=== PATIENT | male | born 1960 | race Caucasian/White ===

== ENCOUNTER 2025-06-13 13:43 | Inpatient (IN) ==
[2025-06-13] MEDS: OPTIRAY 320 125ml IV ONE (14:35)
[2025-06-13 14:43] LABS: Hematocrit (blood only) 41.5 % (42.0-52.0); Hemoglobin 14.6 g/dl (14.0-18.0); Immature Granulocytes # (auto) 0.02 K/uL (0.01-0.20); Immature Granulocytes % (auto) 0.3 %; Mean Corpuscular Hemoglobin 30.7 pg (25.0-34.0); Mean Corpuscular Volume 87.2 fL (80.0-100.0); Platelet Count 188 K/uL (130-400); RDW Standard Deviation 37.8 fL (36.4-46.3); Red Blood Count 4.76 M/uL (4.70-6.10); White Blood Count 6.23 K/ul (4.8-10.8)
--- NOTE | 2025-06-13 14:54 | XRay Report ---
Exam: Chest one view portable. Reason for exam: Chest pain with dizziness. Previous studies: None FINDINGS: Left-sided twin lead pacemaker seen. Wire sternal sutures and clips noted. Heart is top normal in size. Some mild opacification is seen in the retrocardiac silhouette in the left lower lobe suggesting early infiltrate and/or atelectasis. The right lung is clear. No pneumothorax or pleural effusion is seen. IMPRESSION: 1. Status post cardiac surgery and pacemaker placement. 2. Left lower lobe atelectasis/infiltrate. Radiographic follow-up recommended. . Electronically signed by Lester Ma 06-13-2025 2:53 PM
[2025-06-13 15:02] LABS: Alanine Aminotransferase 19.0 U/L (7-52); Albumin Globulin Ratio 1.5 (0.9-2); Alkaline Phosphatase 64.0 U/L (34-104); Anion Gap 7.0 (3-11); Bilirubin,Total 1.7 mg/dl (0.2-1.0); Blood Urea Nitrogen 20.0 mg/dl (6-23); Calcium 9.3 mg/dl (8.6-10.3); Carbon Dioxide 26.0 mmol/L (21-32); Chloride 105.0 mmol/L (98-107); Creatinine Clr Calc Pharmacy 94.6 ml/min; Globulin 2.7 gm/dl (2.5-4.0); Glucose 158.0 mg/dl (70-99(Fasting)); Lipase 39.0 U/L (11-82); Potassium 4.0 mmol/L (3.5-5.1); Sodium 138.0 mmol/L (136-145); Total Protein 6.8 gm/dl (6.0-8.3)
--- NOTE | 2025-06-13 15:18 | CT Scan Report ---
Exam: CT angiogram of the chest pulmonary embolus protocol. Reason for exam: Dizziness with elevated heart rate. Previous studies: Chest radiograph 06/13/2025. FINDINGS: there is good opacification of the pulmonary arteries. At this time no persistent filling defect noted to indicate embolus is seen on either side. The patient is a known aneurysm or dissection. Leads from ventricular pacing device are present. Coronary grafts are noted. Clips present. Overall cardiac size top normal. No mediastinal mass or adenopathy noted. The lungs and show some calcified granulomata, but no active infiltrate or edema. Some osseous changes seen in the right lower lobe. Calcified gallstones present. IMPRESSION: 1. Negative for pulmonary embolus. 2. Negative for aortic dissection. 3. Clear lung zones. Electronically signed by Lester Ma 06-13-2025 3:18 PM
--- NOTE | 2025-06-13 16:30 | History & Physical Report ---
Date of Service June 13, 2025 Assessment & Plan (1) Atrial fibrillation with RVR: Plan: History of paroxysmal atrial fibrillation status post pacemaker placement. History of recurrent ablation and also maze procedure for atrial fibrillation Noted to have A-fib with RVR for monitor as an outpatient and was sent into the emergency room Heart rate is controlled but in A-fib with negative cardiac troponins without any chest pain He was started with intravenous heparin and small dose of beta-felice Cardiology consultation will be taken for further management of his PAF (2) BPH (benign prostatic hyperplasia): Plan: Continue current medications (3) Prediabetes: Plan: Does not take any medications (4) History of testicular cancer: Plan: Remote history of testicular cancer status post right testicular removal (5) H/O aortic valve replacement: Plan: History of Aortic valve replacement Denies any chest pain but has palpitation Will get echo of the heart to evaluate it further (6) H/O thoracic aortic aneurysm repair: Plan DVT prophylaxis IV heparin CODE STATUS Full ER note there is no-year-old History of Present Illness Chief Complaint: Palpitation this morning and informed by doctor's office that she is in atrial fibrillation Primary Care Provider: Jarrod Fallon DO He is a 64-year-old male with significant past medical history of cardiac procedures for A-fib including maze procedure and ablation x 2 1 in 2008 and another on his 2013, open heart surgery with Aortic valve replacement and also status post pacemaker with history of paroxysmal atrial fibrillation. He also has prediabetes and benign prostatic hypertrophy and with remote history of testicular cancer status post right testicle removed in 2000. He has also history of thoracic aortic surgery. He has had anticoagulation with Coumadin in the past but presently has not been taking any anticoagulation. He was told by his doctor's office that he has developed atrial fibrillation with rapid ventricular response. He felt palpitation yesterday and he still went to continue with his gym. He has been weak and did have some chest pressure but no pain or any shortness of breath while at gym and wanted to check out his heart further. Allergies Allergy/AdvReac Type Severity Reaction Status Date / Time No Known Allergies Allergy Unverified 06/13/25 15:49 Home Medications Medication Instructions Recorded Confirmed Type Otc Medications 0 mg PO UD 06/13/25 06/13/25 History finasteride 5 mg tablet 5 mg PO QAM 06/13/25 06/13/25 History hydroxychloroquine 200 mg tablet 200 mg PO QAM 06/13/25 06/13/25 History Past Med/Surg History Problem List (Updated 06/13/25 @ 17:14 by Scott Morton MD) H/O aortic valve replacement Palpitations (Acute) Chest pain (Acute) Medical History Atrial fibrillation with RVR BPH (benign prostatic hyperplasia) Prediabetes History of testicular cancer Surgical History H/O thoracic aortic aneurysm repair Status post mitral valve replacement Social History Smoking Status: Never smoker Hx Alcohol Use: Yes Hx Substance Use: No Preferred Language: Nepalese Communication Ability: Effective Commercial Lines Assistant Required: No Beliefs That Will Affect Care: None Current Living Situation: Spouse Current Living Situation Comment: from home with spouce, pt is able to care for himself Feels Safe at Home: Yes Safety Concerns: Feels Safe At This Time Assistive Devices: None Review of Systems Review of Systems: All systems reviewed and are unremarkable except as noted below Physical Exam Physical Exam: Lying in bed without any acute distress Constitutional: well developed and well nourished; not ill appearing Eyes: PERRL, conjunctivae normal, anicteric sclerae ENMT: external ear and nose normal, oropharynx normal Neck: trachea midline, no thyromegaly Respiratory: no respiratory distress Auscultation: lungs clear to auscultation bilaterally Cardiovascular: Rate/Rhythm: + irregularly irregular; not tachycardic Heart Sounds: normal S1, normal S2 and + murmur Extremities: no edema Gastrointestinal (Abdomen): Inspection/Auscultation: normal bowel sounds; abdomen not distended Percussion/Palpation: abdomen soft; abdomen nontender Musculoskeletal: No acute arthritis involving any of the joint Neurologic: normal touch/pain/proprioception and moves all extremities; no focal motor deficits Lymphatic: no cervical or axillary lymphadenopathy Results & Data Results & Data Vital Signs (Past 12 Hours) Vital Signs Temp Pulse Pulse Resp BP BP Pulse Ox 06/13/25 14:22 73 06/13/25 14:18 75 16 138/94 97 06/13/25 14:18 97 06/13/25 13:52 36.6 C 80 18 129/83 94 O2 Del Method 06/13/25 14:22 06/13/25 14:18 06/13/25 14:18 Room Air 06/13/25 13:52 Room Air Laboratory Results Short CBC 06/13/25 Range/Units 14:13 WBC 6.23 (4.8-10.8) K/ul Hgb 14.6 (14.0-18.0) g/dl Hct 41.5 L (42.0-52.0) % Plt Count 188 (130-400) K/uL BMP 06/13/25 14:13 Sodium 138 Potassium 4.0 Chloride 105 Carbon Dioxide 26 BUN 20 Creatinine 0.95 Glucose 158 H Calcium 9.3 Liver Function 06/13/25 Range/Units 14:13 Total Bilirubin 1.7 H (0.2-1.0) mg/dl AST 27 (13-39) U/L ALT 19 (7-52) U/L Alkaline Phosphatase 64 (34-104) U/L Albumin 4.1 (3.4-5.0) gm/dl Medications Administered Current Inpatient Medications Heparin Sodium/Dextrose (Heparin 28220 Unit/500 Ml D5w) 25,000 units in 500 mls @ 20 mls/hr IV .Q24H MARCIN; Protocol Stop: 07/13/25 16:44 Metoprolol Tartrate (Metoprolol Tartrate 25 Mg Tab) 12.5 mg PO BID MARCIN Stop: 07/13/25 20:59 Glucose mg
[2025-06-13] MEDS: HEPARIN SOD (PORCINE) 1000 UNIT/ML IV ONE (16:48)
[2025-06-13] MEDS: HEPARIN 25000 UNIT/500 ML D5W 25,000 UNITS/500 ML BAG IV SCH (16:48)
--- NOTE | 2025-06-13 17:14 | Emergency Department Note ---
History of Present Illness General Chief Complaint: Cardiac Assessment Stated Complaint: HEART PROBLEMS ELEVATED HR Time Seen by Provider: 06/13/25 14:04 History of Present Illness Provider Complaint: chest pain Onset (ago): hour(s) 3 Duration: improved and now resolved Onset: during exertion (Walking on treadmill) Pain Location: substernal and left chest Pain Radiation: none Current Pain Intensity: 0 Quality: + aching Relieved By: + rest Exacerbated By: + exertion Context: no recent illness, no recent surgery, no recent immobilization, no recent travel, no trauma/injury, no new medications or no history of DVT/PE Associated symptoms: + palpitations; no nausea, no vomiting, no dyspnea, no syncope, no fever, no cough or no leg swelling History of atrial fibrillation not on any anticoagulation. Home Medications Medication Instructions Recorded Confirmed Type Otc Medications 0 mg PO UD 06/13/25 06/13/25 History finasteride 5 mg tablet 5 mg PO QAM 06/13/25 06/13/25 History hydroxychloroquine 200 mg tablet 200 mg PO QAM 06/13/25 06/13/25 History Allergies Allergy/AdvReac Type Severity Reaction Status Date / Time No Known Allergies Allergy Unverified 06/13/25 15:49 Past Med/Surg History Problem List (Updated 06/13/25 @ 17:14 by Scott Morton MD) Palpitations (Acute) Chest pain (Acute) Medical History Atrial fibrillation with RVR BPH (benign prostatic hyperplasia) Prediabetes History of testicular cancer Surgical History H/O thoracic aortic aneurysm repair Status post mitral valve replacement Social History Smoking Status: Never smoker Preferred Language: Sami Feels Safe at Home: Yes Physical Exam Vital Signs Vital Signs - 24 hr 06/13/25 13:52 06/13/25 14:18 06/13/25 14:18 Temperature 36.6 C Temperature Source Temporal Artery Scan Pulse Rate 80 Pulse Rate [Apical] 75 Respiratory Rate 18 16 Respiratory Effort / Characteristics Non-Labored Spontaneous Respiratory Depth Blood Pressure 129/83 Blood Pressure [Left Arm] 138/94 Blood Pressure Mean 98 Blood Pressure Mean [Left Arm] 108 Pulse Oximetry 94 97 97 Oxygen Delivery Method Room Air Room Air Sepsis Recent Fever Within 48 Hours No Sepsis New/Unexplained Change in Mental Status No Sepsis Action Taken by Nursing No Action Required 06/13/25 14:22 06/13/25 16:00 Temperature Temperature Source Pulse Rate 73 Pulse Rate [Apical] 85 Respiratory Rate 15 Respiratory Effort / Characteristics Non-Labored Spontaneous Respiratory Depth Normal Blood Pressure Blood Pressure [Left Arm] 125/91 Blood Pressure Mean Blood Pressure Mean [Left Arm] 102 Pulse Oximetry 99 Oxygen Delivery Method Room Air Sepsis Recent Fever Within 48 Hours Sepsis New/Unexplained Change in Mental Status Sepsis Action Taken by Nursing Physical Exam GENERAL: oriented to person, place, and time. appears well-developed and well- nourished. HENT: Exam performed. - Head: Normocephalic and atraumatic. EYES: Conjunctivae and EOM are normal. Right eye exhibits no discharge. Left eye exhibits no discharge. No scleral icterus. NECK: Normal range of motion. Neck supple. No JVD present. CV: Normal rate, regular rhythm, normal heart sounds and intact distal pulses. There is no peripheral edema. Palpable radial pulses bue. PULM/CHEST: Effort normal and breath sounds normal. No respiratory distress. No stridor. no wheezes. no rales. ABD: The abdomen is soft. There is no tenderness. NEURO: Motor and sensation grossly intact. SKIN: Skin is warm and dry. He is not diaphoretic. PSYCH: normal mood and affect. Behavior is normal. Judgment and thought content normal. Course Course 1404: The patient was evaluated in room B7. A complete history and physical exam was performed Cardiac monitoring: An order was placed for continuous cardiac monitoring. The monitor shows a rate of 80 with atrial fibrilation rhythm interpreted by pa 1535: Vital signs stable. Labs and imaging are unremarkable. Patient will be [facility] for chest pain [facility]. Administered Medications Heparin Sodium/Dextrose (Heparin 00260 Unit/500 Ml D5w) 25,000 units in 500 mls @ 20 mls/hr IV .Q24H [facility]; Protocol Stop: 07/13/25 16:44 Last Admin: 06/13/25 16:48 Dose: 1,000 units/hr, 20 mls/hr Documented By: ADELE Co-signed By: NATALYA Discontinued Medications Heparin Sodium (Porcine) (Heparin Sod (Porcine) 1000 Unit/Ml) 4,000 units IV NOW ONE Stop: 06/13/25 16:33 Last Admin: 06/13/25 16:48 Dose: 4,000 units Documented By: ADELE Co-signed By: NATALYA Ioversol (Optiray 320 125ml) 94 ml IV ONCE ONE Stop: 06/13/25 14:35 Last Admin: 06/13/25 14:35 Dose: 94 ml Documented By: ANNA Medical Decision Making Laboratory Data Attestation: I reviewed the patient's lab results. 06/13/25 14:13 06/13/25 14:13 Labs: Lab Results 06/13/25 06/13/25 Range/Units 14:13 14:18 WBC 6.23 (4.8-10.8) K/ul RBC 4.76 (4.70-6.10) M/uL Hgb 14.6 (14.0-18.0) g/dl POC Hgb 14.3 (14.0-18.0) g/dl Hct 41.5 L (42.0-52.0) % POC Hct 42 (42-52) % MCV 87.2 (80.0-100.0) fL MCH 30.7 (25.0-34.0) pg MCHC 35.2 (32.0-36.0) g/dL RDW Std Deviation 37.8 (36.4-46.3) fL RDW Coeff of Kelly 11.8 (11.5-14.5) % Plt Count 188 (130-400) K/uL MPV 10.7 (9.4-12.4) fL Immature Gran % (Auto) 0.3 % Neut % (Auto) 58.4 % Lymph % (Auto) 27.9 % [place] % (Auto) 10.0 % Eos % (Auto) 2.6 % Baso % (Auto) 0.8 % Neut # (Auto) 3.64 (1.40-6.50) K/uL Lymph # (Auto) 1.74 (1.20-3.40) K/uL [place] # (Auto) 0.62 H (0.11-0.59) K/uL Eos # (Auto) 0.16 (0.00-0.50) K/uL Baso # (Auto) 0.05 (0.00-0.20) K/uL Immature Gran # (Auto) 0.02 (0.01-0.20) K/uL POC Sodium 141 (135-144) mmol/L Sodium 138 (136-145) mmol/L POC Potassium 3.9 (3.3-5.0) mmol/L Potassium 4.0 (3.5-5.1) mmol/L POC Chloride 102 (101-112) mmol/L Chloride 105 (98-107) mmol/L Carbon Dioxide 26 (21-32) mmol/L POC Total CO2 24 (24-31) mmol/L Anion Gap 7 (3-11) POC Anion Gap 19.0 (16-25) mmol/L POC BUN 22 H (7-18) mg/dl BUN 20 (6-23) mg/dl Creatinine 0.95 (0.6-1.4) mg/dl POC Creatinine 1.1 (0.6-1.3) mg/dl Est Cr Clr Drug Dosing 94.6 ml/min eGFR 89.94 BUN/Creatinine Ratio 21.1 H (10-20) Glucose 158 H (70-99(Fasting)) mg/dl POC Glucose (other) 162 H (70-99) mg/dl Calcium 9.3 (8.6-10.3) mg/dl POC Ioniz Calcium Jimmy 1.21 (1.12-1.32) mmol/l Total Bilirubin 1.7 H (0.2-1.0) mg/dl AST 27 (13-39) U/L ALT 19 (7-52) U/L Alkaline Phosphatase 64 (34-104) U/L Troponin I High Sens 8.5 (0-20) pg/ml Total Protein 6.8 (6.0-8.3) gm/dl Albumin 4.1 (3.4-5.0) gm/dl Globulin 2.7 (2.5-4.0) gm/dl Albumin/Globulin Ratio 1.5 (0.9-2) Lipase 39 (11-82) U/L Imaging Data Chest x-ray: Attestation: I personally reviewed and interpreted this imaging study as follows: My impression: Chest x-ray negative. Airway clear. No pneumothorax. No consolidation. No cardiomegaly or cephalization.. No free air under the diaphragm. No fractures of the skeletal structures. Radiologist's impression: Reason for exam: Chest pain with dizziness. Previous studies: None FINDINGS: Left-sided twin lead pacemaker seen. Wire sternal sutures and clips noted. Heart is top normal in size. Some mild opacification is seen in the retrocardiac silhouette in the left lower lobe suggesting early infiltrate and/or atelectasis. The right lung is clear. No pneumothorax or pleural effusion is seen. IMPRESSION: 1. Status post cardiac surgery and pacemaker placement. 2. Left lower lobe atelectasis/infiltrate. Radiographic follow-up recommended. . Electronically signed by Lester Ma 06-13-2025 2:53 PM Dictated: 06/13/25 1428 Transcribed: CT scan - chest: Radiologist's impression: Exam: CT angiogram of the chest pulmonary embolus protocol. Reason for exam: Dizziness with elevated heart rate. Previous studies: Chest radiograph 06/13/2025. FINDINGS: there is good opacification of the pulmonary arteries. At this time no persistent filling defect noted to indicate embolus is seen on either side. The patient is a known aneurysm or dissection. Leads from ventricular pacing device are present. Coronary grafts are noted. Clips present. Overall cardiac size top normal. No mediastinal mass or adenopathy noted. The lungs and show some calcified granulomata, but no active infiltrate or edema. Some osseous changes seen in the right lower lobe. Calcified gallstones present. IMPRESSION: 1. Negative for pulmonary embolus. 2. Negative for aortic dissection. 3. Clear lung zones. Electronically signed by Lester Ma 06-13-2025 3:18 PM Dictated: 06/13/25 1427 Transcribed: ECG Data Attestation: I personally reviewed and interpreted this ECG as follows: Rate (beats per minute): 80 Rhythm: atrial fibrillation Findings: + PVC; no ST depression, no ST elevation or no prolonged QT MDM Narrative 1404: The patient was evaluated in room B7. A complete history and physical exam was performed Cardiac monitoring: An order was placed for continuous cardiac monitoring. The monitor shows a rate of 80 with atrial fibrilation rhythm interpreted by me 1535: Vital signs stable. Labs and imaging are unremarkable. Patient will be admitted for chest pain rule [facility] Impression & Plan Chest pain, Palpitations Discharge Plan Visit Data Chief Complaint: Cardiac Assessment Stated Complaint: HEART PROBLEMS ELEVATED HR ED Provider: Scott Morton Discharge Problem: Chest pain, Palpitations Patient Disposition: Admitted As Inpatient Condition: Fair Forms Stand Alone Forms: My [facility] [employer] Prescriptions Prescriptions: No Action hydroxychloroquine 200 mg tablet 200 mg PO QAM finasteride 5 mg tablet 5 mg PO QAM Otc Medications 0 mg PO UD Patient Comments: 06/13-Per pt he takes several but didn't mention them to me as he said "I wont worry about that". Referrals Referrals: Jarrod Fallon DO [Primary Care Provider] -
[2025-06-13 17:33] LABS: Magnesium 2.0 mg/dl (1.7-2.4)
[2025-06-13] MEDS: Heparin IV Adult Wt-Based Low-Dose w/ INITIAL Bolus Protocol IV STA (17:35)
[2025-06-13 19:16] LABS: INR 1.0 (0.9-1.1); Prothrombin Time 11.1 Seconds (9.0-12.0)
[2025-06-13] MEDS: METOPROLOL TARTRATE 25 MG TAB PO SCH (21:30)
[2025-06-13 23:49] LABS: ANTI-Xa, UFH(UnfractionatedHep 0.28 IU/ml (0.3-0.7)
[2025-06-14 07:09] LABS: Hematocrit (blood only) 41.5 % (42.0-52.0); Hemoglobin 13.7 g/dl (14.0-18.0); Immature Granulocytes # (auto) 0.01 K/uL (0.01-0.20); Immature Granulocytes % (auto) 0.2 %; Mean Corpuscular Hemoglobin 29.0 pg (25.0-34.0); Mean Corpuscular Volume 87.9 fL (80.0-100.0); Platelet Count 168 K/uL (130-400); RDW Standard Deviation 38.2 fL (36.4-46.3); Red Blood Count 4.72 M/uL (4.70-6.10); White Blood Count 5.18 K/ul (4.8-10.8)
[2025-06-14 07:28] LABS: Anion Gap 4.0 (3-11); Blood Urea Nitrogen 14.0 mg/dl (6-23); Calcium 8.8 mg/dl (8.6-10.3); Carbon Dioxide 31.0 mmol/L (21-32); Chloride 105.0 mmol/L (98-107); Creatinine Clr Calc Pharmacy 97.1 ml/min; Glucose 110.0 mg/dl (70-99(Fasting)); Magnesium 2.1 mg/dl (1.7-2.4); Potassium 4.1 mmol/L (3.5-5.1); Sodium 140.0 mmol/L (136-145)
[2025-06-14 07:32] LABS: ANTI-Xa, UFH(UnfractionatedHep 0.36 IU/ml (0.3-0.7)
[2025-06-14] MEDS: FINASTERIDE 5 MG TAB PO SCH (07:40)
[2025-06-14] MEDS: HYDROXYCHLOROQUINE SULFATE 200 MG TAB PO SCH (07:40)
--- NOTE | 2025-06-14 09:06 | Cardiology Consultation ---
Date of Consultation June 14, 2025 Assessment & Plan (1) Paroxysmal atrial fibrillation: (2) H/O aortic valve replacement: (3) Cardiac pacemaker in situ: Plan Patient is a 64 year old with history of PAF and AVR, admitted to [facility] with persistent atrial fibrillation since 05/31/25 according to recent device interrogation. Ventricular rates in the 90's. Patient reports increased fatigue and elevated HR's at home over the last few days, prompting him to the ER. He has not been anticoagulated since time of his AVR (with Maze procedure) completed in 2018 in [place]. He reports typically when he has an episode of PAF, it is short in duration. He has not been on BB. history of 2 prior ablations that were deemed NOT successful. Started on IV heparin for anticoagulation. Will need oral anticoagulation on discharge. May need to check cost of Eliquis vs Coumadin. Started on low dose metoprolol tartrate 12.5 mg BID. HR's improved. Symptoms improved this morning. Echo with preserved LVEF, normal gradients of AVR. LA mildly dilated Consider RENETTA/CV in the morning vs 4 weeks of anticoagulation then attempted cardioversion if he remains in atrial fibrillation. Further recommendations pending evaluation/discussion with Dr. Kaba. I spent a total of 65 minutes on the date of service in preparation, delivery, and documentation of the care provided to this patient, excluding any time spent in the performance of separately billed services. Cee Rodriguez PA-C Department of Cardiology, [facility] This chart was completed in part utilizing Speech Voice Recognition Software. Grammatical errors, random word insertions, pronoun errors, and incomplete sentences are an occasional consequence of this system due to software limitations, ambient noise, and hardware issues. Any formal questions or concerns about the content, text, or information contained within the body of this dictation should be directly addressed to the provider for clarification. Supervising Physician Co-Signing Physician Notes I have personally performed a history and physical examination on the patient. I have reviewed the advance practitioner's documentation, and I agree with, and take responsibility for the plan of care. 64-year-old male history of bicuspid aortic valve status post aortic valve replacement, paroxysmal atrial fibrillation status post ablation x 2 and Valderrama- Maze procedure presents with recurrent atrial fibrillation beginning in early May. Atrial fibrillation noted on Biotronik pacemaker interrogation. Notes symptoms including shortness of breath and exercise intolerance. No lightness, dizziness, syncope, or near syncope. He is not chronically anticoagulated. Rate versus rhythm control strategy discussed. Cardioversion can be performed after 4 weeks event anticoagulation or we can proceed with transesophageal echo guided cardioversion tomorrow. Patient prefers to expedite rhythm control strategy at this time. N.p.o. except medications after midnight. Will proceed with transesophageal echocardiogram guided cardioversion in AM. [employer] registered dietetic technician will be present for pacemaker interrogation post cardioversion. Increase metoprolol to 25 mg twice daily. First dose now. Continue IV heparin. Outpatient EP referral to consider ablation. Deyvi Kaba DO, [facility] I spent a total of 40 minutes on the date of service in preparation, delivery, and documentation of the care provided to this patient, excluding any time spent in the performance of separately billed services. History of Present Illness Reason for Consultation: Afib Requesting Physician: Guillaume Hospitalist Attending Physician: Dr. Kaba History of Present Illness Patient is a 64 year old male who was admitted to [facility] with complaints of recu rrent afib with mildly elevated rates and increased fatigue over the last few days. History includes: 1. PAF, initially diagnosed around 2008. S/P ablation in 2008 and recurrent ablation in 2012. Failed attempts. Continued to have episodes of PAF 2. AVR with Maze procedure in 2017 while in [place] 3. Patient reports normal coronary arteries in 2018. 4. Post op complete heart block requiring dual chamber pacemaker - Biotronik device implanted Patient follows with EP, Dr. Foster since moving from [place]. Saw one time in 2023 to establish care locally and device followed with [facility]. Last week patient was contacted by device clinic for afib episode, starting on 05/31 and persistent. He had no significant symptoms last week and told staff he would monitor his symptoms and return cardiology visit to be arranged. In the meantime, over the weekend, patient noted increased fatigue and higher HR's with minimal exertion. He came to the ER last night for evaluation and treatment. EKG in ER demonstrated afib with intermittent ventricular paced complex. HR's controlled. He was started on IV heparin and low dose metoprolol tartrate. At time of consult, patient reports feeling better since HR has improved. Tolerating meds. No chest pain or dyspnea this morning. He ate breakfast. Patient reports he is leaving to go to [place] for 1 month in about 4 weeks. Allergies Allergy/AdvReac Type Severity Reaction Status Date / Time No Known Allergies Allergy Unverified 06/13/25 15:49 Home Medications Medication Instructions Recorded Confirmed Type Otc Medications 0 mg PO UD 06/13/25 06/13/25 History finasteride 5 mg tablet 5 mg PO QAM 06/13/25 06/13/25 History hydroxychloroquine 200 mg tablet 200 mg PO QAM 06/13/25 06/13/25 History Patient History Medical History Atrial fibrillation with RVR BPH (benign prostatic hyperplasia) Prediabetes History of testicular cancer Surgical History H/O thoracic aortic aneurysm repair Status post mitral valve replacement Social History Smoking Status: Never smoker Hx Alcohol Use: Yes Hx Substance Use: No Preferred Language: Swedish Communication Ability: Effective Lamination Technician Required: No Beliefs That Will Affect Care: None Current Living Situation: Spouse Current Living Situation Comment: from home with spouce, pt is able to care for himself Feels Safe at Home: Yes Safety Concerns: Feels Safe At This Time Assistive Devices: None Review of Systems Review of Systems: All systems reviewed & are unremarkable except as noted in HPI & below Physical Exam Constitutional: WD/WN, vitals as above well developed; no acute distress Neck: trachea midline, no thyromegaly Respiratory: normal respiratory effort; no labored breathing Auscultation: lungs clear to auscultation bilaterally Cardiovascular: Rate/Rhythm: + irregularly irregular Heart Sounds: + murmur (II/ systolic murmur LSB) Vessels: no JVD Extremities: no edema Gastrointestinal (Abdomen): normal bowel sounds, soft, nontender, no hepatosplenomegaly Neurologic: PERRL, EOMI, accommodation nl, no face palsy, no dysarthria Psychiatric: A+Ox3, euthymic affect Results & Data Vital Signs (Past 12 Hours) Vital Signs Temp Pulse Pulse Resp BP BP Pulse Ox 06/14/25 08:41 126/70 06/14/25 07:50 36.5 C 76 18 97 06/14/25 04:21 36.4 C L 69 16 123/85 96 06/13/25 23:25 36.4 C L 70 18 166/99 H 100 06/13/25 22:52 74 16 151/98 H 99 06/13/25 22:15 76 06/13/25 22:01 75 16 152/93 H 98 O2 Del Method 06/14/25 08:41 06/14/25 07:50 Room Air 06/14/25 04:21 Room Air 06/13/25 23:25 Room Air 06/13/25 22:52 Room Air 06/13/25 22:15 06/13/25 22:01 Room Air Laboratory Results Cardiac Enzymes 06/13/25 Range/Units 14:13 AST 27 (13-39) U/L Troponin I High Sens 8.5 (0-20) pg/ml Coagulation 06/13/25 Range/Units 14:13 PT 11.1 (9.0-12.0) Seconds CBC 06/13/25 06/14/25 Range/Units 14:13 06:50 WBC 6.23 5.18 (4.8-10.8) K/ul RBC 4.76 4.72 (4.70-6.10) M/uL Hgb 14.6 13.7 L (14.0-18.0) g/dl Hct 41.5 L 41.5 L (42.0-52.0) % Plt Count 188 168 (130-400) K/uL Neut # (Auto) 3.64 2.42 (1.40-6.50) K/uL Lymph # (Auto) 1.74 1.92 (1.20-3.40) K/uL Hopkins # (Auto) 0.62 H 0.55 (0.11-0.59) K/uL Eos # (Auto) 0.16 0.22 (0.00-0.50) K/uL Baso # (Auto) 0.05 0.06 (0.00-0.20) K/uL Comprehensive Metabolic Panel 06/13/25 06/14/25 Range/Units 14:13 06:50 Sodium 138 140 (136-145) mmol/L Potassium 4.0 4.1 (3.5-5.1) mmol/L Chloride 105 105 (98-107) mmol/L Carbon Dioxide 26 31 (21-32) mmol/L BUN 20 14 (6-23) mg/dl Creatinine 0.95 0.92 (0.6-1.4) mg/dl Glucose 158 H 110 H (70-99(Fasting)) mg/dl Calcium 9.3 8.8 (8.6-10.3) mg/dl AST 27 (13-39) U/L ALT 19 (7-52) U/L Alkaline Phosphatase 64 (34-104) U/L Total Protein 6.8 (6.0-8.3) gm/dl Albumin 4.1 (3.4-5.0) gm/dl Intake and Output 06/13/25 06/14/25 06/14/25 22:59 06:59 14:59 Intake Total 157.667 / 157.667 152.533 / 152.533 Balance 157.667 / 157.667 152.533 / 152.533 Intake: IV 157.667 / 157.667 152.533 / 152.533 Heparin 55269 Unit/500 ml D5w 157.667 / 157.667 152.533 / 152.533 25,000 units In 500 ml @ 1,000 UNITS/HR 20 mls/hr IV .Q24H [facility] Rx#:[id number] Other: Weight 99.3 kg Weight Measurement Method Standing Scale Diagnostic Findings Telemetry reviewed: Afib with rates ranging 70-90's. intermittent ventricular pacing EKG reviewed form admission: Afib with intermittent ventricular pacing Echo reviewed from this morning: Normal LVEF at 55-60% Mild concentric LVH LA is mildly dilated Bioprosthetic AVR -normal gradients. No significant AI Mild MR Mild TR No pulm hypertension Chest X-Ray 06/13/25 13:56 Exam: Chest one view portable. Reason for exam: Chest pain with dizziness. Previous studies: None FINDINGS: Left-sided twin lead pacemaker seen. Wire sternal sutures and clips noted. Heart is top normal in size. Some mild opacification is seen in the retrocardiac silhouette in the left lower lobe suggesting early infiltrate and/or atelectasis. The right lung is clear. No pneumothorax or pleural effusion is seen. IMPRESSION: 1. Status post cardiac surgery and pacemaker placement. 2. Left lower lobe atelectasis/infiltrate. Radiographic follow-up recommended. . Electronically signed by Lester Ma 06-13-2025 2:53 PM Chest CTA 06/13/25 14:15 Exam: CT angiogram of the chest pulmonary embolus protocol. Reason for exam: Dizziness with elevated heart rate. Previous studies: Chest radiograph 06/13/2025. FINDINGS: there is good opacification of the pulmonary arteries. At this time no persistent filling defect noted to indicate embolus is seen on either side. The patient is a known aneurysm or dissection. Leads from ventricular pacing device are present. Coronary grafts are noted. Clips present. Overall cardiac size top normal. No mediastinal mass or adenopathy noted. The lungs and show some calcified granulomata, but no active infiltrate or edema. Some osseous changes seen in the right lower lobe. Calcified gallstones present. IMPRESSION: 1. Negative for pulmonary embolus. 2. Negative for aortic dissection. 3. Clear lung zones. Electronically signed by Lester aM 06-13-2025 3:18 PM Medications Administered Current Inpatient Medications Finasteride (Finasteride 5 Mg Tab) 5 mg PO QAM [facility] Stop: 07/14/25 08:59 Last Admin: 06/14/25 07:40 Dose: 5 mg Hydroxychloroquine Sulfate (Hydroxychloroquine Sulfate 200 Mg Tab) 200 mg PO QAM [facility] Stop: 07/14/25 08:59 Last Admin: 06/14/25 07:40 Dose: 200 mg Heparin Sodium/Dextrose (Heparin 02036 Unit/500 Ml D5w) 25,000 units in 500 mls @ 22 mls/hr IV .[id number] [facility]; Protocol Stop: 07/13/25 16:44 Last Titration: 06/14/25 07:37 Dose: 1,100 units/hr, 22 mls/hr Metoprolol Tartrate (Metoprolol Tartrate 25 Mg Tab) 12.5 mg PO BID [facility] Stop: 07/13/25 20:59 Last Admin: 06/14/25 08:56 Dose: 12.5 mg PG Care Time/CCT Total # of Minutes Spent Total Time Spent with Patient: Total time spent is greater than 50% in coordination of care (as documented) at patient's floor/unit and/or counseling patient: 65 minutes Coding Level of Care Code 01562 OFFICE CONSULT LVL 5/55M Diagnoses Paroxysmal atrial fibrillation I48.0 H/O aortic valve replacement Z95.2 Cardiac pacemaker in situ Z95.0
--- NOTE | 2025-06-14 14:02 | Hospitalist Progress Note ---
Date of Service June 14, 2025 Assessment & Plan (1) Atrial fibrillation with RVR: Plan: Patient with a history of PAF and aortic valve replacement, pacemaker placement presented with A-fib according to her recent device interrogation Ventricular rate well-controlled in 70s to 80s Echocardiogram shows EF of 55 to 60%; gradient normal for prosthetic aortic valve Continue on IV heparin for anticoagulation; continue on low-dose metoprolol N.p.o. from midnight for possible cardioversion tomorrow a.m. (2) BPH (benign prostatic hyperplasia): Plan: Continue finasteride (3) Prediabetes: Plan: Does not take any medications (4) History of testicular cancer: Plan: Remote history of testicular cancer status post right testicular removal (5) H/O aortic valve replacement: Plan: History of Aortic valve replacement (6) H/O thoracic aortic aneurysm repair: Plan DVT prophylaxis IV heparin CODE STATUS Clarification Operator spent evaluating patient, direct bedside care, chart review, placing orders, interpretation of diagnostic studies, discussion with consultants, patient, and family members, as well as other required patient management activities is 50 minutes Please note the above document was generated using voice recognition software. It may contain grammatical, syntax or spelling errors. Any formal questions or concerns about the content, text or information contained within the body of this dictation should be directly addressed to the provider for clarification Admission and Anticipated Discharge Date Admission Date: June 13, 2025 Subjective Patient seen and examined at bedside. Comfortable; not in distress. no chest pain, palpitations or shortness of breath Review of Systems Review of Systems: All systems reviewed & are unremarkable except as noted in Subjective Physical Exam Physical Exam: Constitutional: WD/WN, vitals as above, NAD, sitting up in bed, pleasant, conversing easily Respiratory: normal respiratory effort, lungs clear to auscultation, no wheeze, rales, rhonchi. Normal insp/exp effort, no accessory muscle use Cardiovascular- systolic murmur present. Irregular Chest: normal inspection of chest Abdomen: normal bowel sounds, soft, nontender, no hepatosplenomegaly Musculoskeletal: no cyanosis or clubbing, extremities motor strength 5/5 Skin: no rashes, warm and dry normal turgor Neurologic: PERRL, EOMI, accommodation nl, no face palsy, no dysarthria CN's II- XI intact bilaterally and moves all extremities Psychiatric: A+Ox3, euthymic affect Results & Data Results & Data Vital Signs (Past 12 Hours) Vital Signs Temp Pulse Pulse Resp BP Pulse Ox O2 Del Method 06/14/25 11:25 36.5 C 16 99 Room Air 06/14/25 11:22 78 06/14/25 08:41 126/70 06/14/25 08:00 69 06/14/25 07:50 36.5 C 76 18 97 Room Air 06/14/25 04:21 36.4 C L 69 16 123/85 96 Room Air
[2025-06-14 15:30] LABS: ANTI-Xa, UFH(UnfractionatedHep 0.39 IU/ml (0.3-0.7)
[2025-06-14] MEDS: METOPROLOL TARTRATE 25 MG TAB PO SCH (18:18)
[2025-06-15 05:57] LABS: Hematocrit (blood only) 42.3 % (42.0-52.0); Hemoglobin 14.1 g/dl (14.0-18.0); Immature Granulocytes # (auto) 0.02 K/uL (0.01-0.20); Immature Granulocytes % (auto) 0.3 %; Mean Corpuscular Hemoglobin 29.0 pg (25.0-34.0); Mean Corpuscular Volume 87.0 fL (80.0-100.0); Platelet Count 175 K/uL (130-400); RDW Standard Deviation 37.4 fL (36.4-46.3); Red Blood Count 4.86 M/uL (4.70-6.10); White Blood Count 5.75 K/ul (4.8-10.8)
[2025-06-15 06:12] LABS: Anion Gap 7.0 (3-11); Blood Urea Nitrogen 15.0 mg/dl (6-23); Calcium 8.8 mg/dl (8.6-10.3); Carbon Dioxide 27.0 mmol/L (21-32); Chloride 105.0 mmol/L (98-107); Creatinine Clr Calc Pharmacy 89.3 ml/min; Glucose 111.0 mg/dl (70-99(Fasting)); Potassium 4.1 mmol/L (3.5-5.1); Sodium 139.0 mmol/L (136-145)
[2025-06-15 06:28] LABS: ANTI-Xa, UFH(UnfractionatedHep 0.35 IU/ml (0.3-0.7)
--- NOTE | 2025-06-15 07:09 | Anesthesiology Consultation ---
Date of Service June 15, 2025 Assessment & Plan ASA ASA3 Proposed Anesthesia Anesthesia Type: MAC Risk / Benefits Reviewed With: PT / POA / Parent / Guardian, Accepts Plan and Informed Consent Obtained History Surgery Operation Date: 06/15/25 07:15 Proposed Procedures p Cardioversion w/Anesthesia Sedation - Deyvi Kaba DO s Transesophageal Echo w/Anesthesia - Deyvi Kaba DO Height/Weight Height: 5 ft 10 in Weight: 99.3 kg Allergies Allergy/AdvReac Type Severity Reaction Status Date / Time No Known Allergies Allergy Unverified 06/13/25 15:49 Medications Home Medications Medication Instructions Recorded Confirmed Last Taken Otc Medications 0 mg PO UD 06/13/25 06/13/25 Unknown finasteride 5 mg tablet 5 mg PO QAM 06/13/25 06/13/25 06/13/25 hydroxychloroquine 200 mg tablet 200 mg PO QAM 06/13/25 06/13/25 06/13/25 Active Medications Generic Name Dose Route Start Last Admin Trade Name Shayq PRN Reason Stop Dose Admin Finasteride 5 mg 06/14/25 09:00 06/14/25 07:40 Finasteride 5 Mg Tab PO 07/14/25 08:59 5 mg QAM MARCIN Administration Hydroxychloroquine Sulfate 200 mg 06/14/25 09:00 06/14/25 07:40 Hydroxychloroquine Sulfate 200 Mg Tab PO 07/14/25 08:59 200 mg QAM MARCIN Administration Heparin Sodium/Dextrose 25,000 units in 500 mls @ 22 mls/hr 06/13/25 16:45 06/14/25 19:01 Heparin 78966 Unit/500 Ml D5w IV 07/13/25 16:44 1,100 units/hr .[id number] MARCIN 22 mls/hr Titration Protocol 1,100 UNITS/HR Metoprolol Tartrate 25 mg 06/14/25 17:00 06/14/25 20:46 Metoprolol Tartrate 25 Mg Tab PO 07/14/25 16:59 25 mg BID MARCIN Administration NPO Date Last Intake of Fluids: 06/14/25 Time Last Intake of Fluids: 23:59 Date Last Intake of Solids: 06/14/25 Time Last Intake of Solids: 23:59 Past Medical History Medical History Atrial fibrillation with RVR BPH (benign prostatic hyperplasia) Prediabetes History of testicular cancer Exercise / Class Metabolic Activity II 4-5 Yardwork/Stairs/Walk up hill Past Surgical History Surgical History H/O thoracic aortic aneurysm repair Status post mitral valve replacement Past Anesthesia History No Hx of Anesthesia Complications and No Family Hx of Anesthesia Complications History of PONV No Hx of PONV and No Hx of Motion Sickness Social History Smoking Status: Never smoker Hx Alcohol Use: Yes Alcohol Intake Frequency Comment: pt stated his home has been dry for 3 months Hx Substance Use: No Physical Exam Vital Signs Last Vital Signs Temp 36.8 C 06/15/25 03:00 Pulse 70 06/15/25 03:00 Resp 16 06/15/25 03:00 BP 118/80 06/15/25 03:00 Pulse Ox 97 06/15/25 03:00 O2 Del Method Room Air 06/15/25 03:00 Constitutional no acute distress ENMT Mouth: no dentition abnormality Thyromental Distance: > or= 3.5 Finger Breadths Mallampati Class: II Neck normal visual inspection Respiratory normal respiratory effort; no respiratory distress Auscultation: lungs clear to auscultation bilaterally Cardiovascular Rate/Rhythm: regular rate and regular rhythm Heart Sounds: no murmur Musculoskeletal Spine: normal cervical ROM Psychiatric Orientation: alert and oriented x 3 Testing Laboratory Results 06/15/25 05:31 06/15/25 05:31 PT 11.1 Seconds (9.0-12.0) 06/13/25 14:13 INR 1.0 (0.9-1.1) 06/13/25 14:13 Electrocardiogram Date: 06/14/25 V paced Echocardiogram Date: 06/14/25 EF: 55% LV Function: normal Other Findings: + LVH (mild) Valvular Disease: + pertinent finding (bioprosthetic Aortic Valve with normal function ) Day of Procedure Evaluation. Date of Surgery June 15, 2025 Height/Weight Height: 5 ft 10 in Weight: 99.3 kg Vital Signs Last Vital Signs Temp 36.8 C 06/15/25 03:00 Pulse 69 06/15/25 07:05 Resp 14 06/15/25 07:05 BP 139/93 06/15/25 07:05 Pulse Ox 96 06/15/25 07:05 O2 Del Method Room Air 06/15/25 07:05 Allergies Allergy/AdvReac Type Severity Reaction Status Date / Time No Known Allergies Allergy Unverified 06/13/25 15:49 Medications Home Medications Medication Instructions Recorded Confirmed Last Taken Otc Medications 0 mg PO UD 06/13/25 06/13/25 Unknown finasteride 5 mg tablet 5 mg PO QAM 06/13/25 06/13/25 06/13/25 hydroxychloroquine 200 mg tablet 200 mg PO QAM 06/13/25 06/13/25 06/13/25 Active Medications Generic Name Dose Route Start Last Admin Trade Name Shayq PRN Reason Stop Dose Admin Finasteride 5 mg 06/14/25 09:00 06/14/25 07:40 Finasteride 5 Mg Tab PO 07/14/25 08:59 5 mg QAM MARCIN Administration Hydroxychloroquine Sulfate 200 mg 06/14/25 09:00 06/14/25 07:40 Hydroxychloroquine Sulfate 200 Mg Tab PO 07/14/25 08:59 200 mg QAM MARCIN Administration Heparin Sodium/Dextrose 25,000 units in 500 mls @ 22 mls/hr 06/13/25 16:45 06/14/25 19:01 Heparin 69314 Unit/500 Ml D5w IV 07/13/25 16:44 1,100 units/hr .[id number] MARCIN 22 mls/hr Titration Protocol 1,100 UNITS/HR Metoprolol Tartrate 25 mg 06/14/25 17:00 06/14/25 20:46 Metoprolol Tartrate 25 Mg Tab PO 07/14/25 16:59 25 mg BID MARCIN Administration Past Anesthesia History No Hx of Anesthesia Complications and No Family Hx of Anesthesia Complications History of PONV No Hx of PONV and No Hx of Motion Sickness NPO Date Last Intake of Fluids: 06/14/25 Time Last Intake of Fluids: 23:59 Date Last Intake of Solids: 06/14/25 Time Last Intake of Solids: 23:59 Home Medications Home Medications Medication Instructions Recorded Confirmed Last Taken Otc Medications 0 mg PO UD 06/13/25 06/13/25 Unknown finasteride 5 mg tablet 5 mg PO QAM 06/13/25 06/13/25 06/13/25 hydroxychloroquine 200 mg tablet 200 mg PO QAM 06/13/25 06/13/25 06/13/25 Active Medications Generic Name Dose Route Start Last Admin Trade Name Deb PRN Reason Stop Dose Admin Finasteride 5 mg 06/14/25 09:00 06/14/25 07:40 Finasteride 5 Mg Tab PO 07/14/25 08:59 5 mg QAM MARCIN Administration Hydroxychloroquine Sulfate 200 mg 06/14/25 09:00 06/14/25 07:40 Hydroxychloroquine Sulfate 200 Mg Tab PO 07/14/25 08:59 200 mg QAM MARCIN Administration Heparin Sodium/Dextrose 25,000 units in 500 mls @ 22 mls/hr 06/13/25 16:45 06/14/25 19:01 Heparin 86378 Unit/500 Ml D5w IV 07/13/25 16:44 1,100 units/hr .[id number] MARCIN 22 mls/hr Titration Protocol 1,100 UNITS/HR Metoprolol Tartrate 25 mg 06/14/25 17:00 06/14/25 20:46 Metoprolol Tartrate 25 Mg Tab PO 07/14/25 16:59 25 mg BID MARCIN Administration Exercise / Class Metabolic Activity Metabolic Activity: II 4-5 Yardwork/Stairs/Walk up hill Physical Exam Constitutional: no acute distress Mouth: no dentition abnormality Thyromental Distance: > or= 3.5 Finger Breadths Mallampati Class: II Neck: + visual inspection normal Respiratory: + respiratory effort normal and + clear to auscultation bilaterally; no respiratory distress Cardiovascular: + regular rate and + regular rhythm; no murmur Musculoskeletal: no limited cervical ROM Psychiatric: + alert and + oriented x 3 ASA ASA3 Proposed Anesthesia Proposed Anesthesia: MAC Risk / Benefits Reviewed With: PT / POA / Parent / Guardian, Accepts Plan and Informed Consent Obtained
--- NOTE | 2025-06-15 08:12 | Anesthesiology Progress Note ---
Date of Service June 15, 2025 Anesthesia Post Procedure Vital Signs Vital Signs: Temp Pulse Pulse Resp BP Pulse Ox O2 Del Method 06/15/25 08:10 90 16 115/91 93 Room Air 06/15/25 07:55 90 16 112/94 93 Room Air 06/15/25 07:05 69 14 139/93 96 Room Air 06/15/25 03:00 36.8 C 70 16 118/80 97 Room Air 06/14/25 23:00 36.6 C 68 16 122/76 97 Room Air 06/14/25 22:24 74 06/14/25 20:00 76 16 128/80 98 Room Air 06/14/25 18:16 92 H 148/88 H 06/14/25 14:44 36.6 C 88 16 127/84 98 Room Air 06/14/25 14:36 90 06/14/25 11:25 36.5 C 16 99 Room Air 06/14/25 11:22 78 06/14/25 08:41 126/70 Transfer of Care Handoff Completed per policy Notes Mental Status: alert / awake / arousable and participated in evaluation Nausea / Vomiting: adequately controlled Pain: adequately controlled Airway Patency, RR, SpO2: stable & adequate BP & HR: stable & adequate Hydration State: stable & adequate Anesthetic Complications: no major complications apparent and Pt Satisfied with anesthetic care
--- NOTE | 2025-06-15 08:30 | Cardioversion ---
Date of Service June 15, 2025 PG Electrical Cardioversion Rp Electrical Cardioversion Report Indication: Paroxysmal atrial flutter, symptomatic Complications: None Estimated blood loss: None Anesthesia: Conscious sedation provided by the anesthesia service with propofol. Please see separate report. Procedural summary: Patient was brought to the cardiac catheterization holding area in a fasting state. Defibrillator pads were placed in the anterior and posterior position. Transesophageal echocardiogram performed prior to cardioversion. In brief, the left atrial appendage is occluded. There is no evidence of left atrial thrombus. See separate report. Atrial fibrilla tion/flutter confirmed on monitor. Atrial flutter confirmed per pacemaker interrogation with atrial rate of 185 bpm. While patient was sedated, the defibrillator was synced to the QRS complex. A single, 150 J shock was delivered. Patient successfully converted from atrial flutter to normal sinus rhythm. Pacemaker programmed for atrial pacing at 90 bpm for the next 60 minutes. Will then reduce baseline rate back to 70 bpm. Patient tolerated procedure well. No focal neurologic deficit postprocedure. Conclusion: Successful transesophageal echo guided external direct-current cardioversion from atrial flutter to sinus rhythm with 150 J. Deyvi Kaba DO, FACC Coding Level of Care Code 03815 CARDIOVERSION, ELECTIVE Additional Codes Electrical Cardioversion Report ([id number])
[2025-06-15] MEDS: KETAMINE HCL 10MG/ML SYR ONE (09:22)
[2025-06-15] MEDS: PROPOFOL IV EMULSION 10 MG/ML 20 ML VIAL IV ONE (09:23)
[2025-06-15] MEDS: LIDOCAINE 2% 2 ML VIAL/AMP(20MG/ML) INFIL ONE (09:23)
[2025-06-15] MEDS: BENZOCAINE/TETRACAIN/BUTAM 50 APPLN/5 GM CAN EXT ONE (09:23)
[2025-06-15 09:42] VITALS: RESP 18
[2025-06-15] MEDS: METOPROLOL TARTRATE 50 MG TAB PO SCH (10:30)
[2025-06-15] MEDS: [UNRECOGNIZED DRUG - REMARK] ONE (11:27)
--- NOTE | 2025-06-15 11:34 | Cardiology Progress Note ---
Date of Service June 15, 2025 Assessment & Plan (1) Atrial flutter, paroxysmal: (2) Paroxysmal atrial fibrillation: (3) H/O aortic valve replacement: (4) Pacemaker: Plan Natural history and pathophysiology of paroxysmal atrial flutter/fibrillation discussed. Atrial rate 185 bpm per pacemaker interrogation pre-cardioversion. Patient is asymptomatic at this time. Recommend titration of metoprolol to 50 mg twice daily. Transition IV heparin to oral anticoagulation with Eliquis if approved by insurance. Outpatient electrophysiology referral. I discussed the results of the transesophageal echocardiogram and possible PPM lead mobile echodensity noted in technically limited view. Findings may be artifactual, however, vegetation or thrombus not excluded. No signs/symptoms of endocarditis at this time. White blood cell count within normal limits, no fever or chills. Blood culture drawn for completeness. All questions answered to satisfaction both the patient and his . Deyvi Kaba DO, [facility] Admission and Anticipated Discharge Date Admission Date: June 13, 2025 Subjective 64-year-old male seen and examined at the bedside. Transesophageal echocardiogram performed this a.m. without complication. No evidence of left atrial thrombus. His left atrial appendage is occluded. Cardioversion initially successful, however, patient reverted back to atrial fibrillation. Essentially asymptomatic at this time. Transesophageal echocardiogram images of the pacemaker leads suggestive of possible small echodensity which may be artifactual although vegetation or thrombus cannot be excluded. Patient without fever, chills, or systemic symptoms. Review of Systems Review of Systems: All systems reviewed & are unremarkable except as noted in Subjective Physical Exam Constitutional: well nourished; no acute distress Respiratory: no respiratory distress, no labored breathing and no retractions Auscultation: no crackles, no rales, no rhonchi and no wheezes Cardiovascular: Rate/Rhythm: regular rate and regular rhythm Heart Sounds: normal S1, normal S2 and + murmur (2/6 low pitched mid peaking systolic ejection murmur) Vessels: no JVD and no carotid bruit Extremities: no edema Gastrointestinal (Abdomen): Inspection/Auscultation: normal bowel sounds; abdomen not distended Percussion/Palpation: abdomen soft; abdomen nontender, no guarding and abdomen not rigid Neurologic: CN's II-XI intact bilaterally and moves all extremities; no focal motor deficits Results & Data Vital Signs (Past 12 Hours) Vital Signs Temp Pulse Pulse Resp BP Pulse Ox O2 Del Method 06/15/25 09:41 37.2 C 82 18 105/71 96 Room Air 06/15/25 08:10 90 16 115/91 93 Room Air 06/15/25 07:55 90 16 112/94 93 Room Air 06/15/25 07:30 94 H 06/15/25 07:05 69 14 139/93 96 Room Air 06/15/25 03:00 36.8 C 70 16 118/80 97 Room Air Laboratory Results CBC 06/15/25 Range/Units 05:31 WBC 5.75 (4.8-10.8) K/ul RBC 4.86 (4.70-6.10) M/uL Hgb 14.1 (14.0-18.0) g/dl Hct 42.3 (42.0-52.0) % Plt Count 175 (130-400) K/uL Neut # (Auto) 3.03 (1.40-6.50) K/uL Lymph # (Auto) 1.79 (1.20-3.40) K/uL Mathews # (Auto) 0.59 (0.11-0.59) K/uL Eos # (Auto) 0.25 (0.00-0.50) K/uL Baso # (Auto) 0.07 (0.00-0.20) K/uL Comprehensive Metabolic Panel 06/15/25 Range/Units 05:31 Sodium 139 (136-145) mmol/L Potassium 4.1 (3.5-5.1) mmol/L Chloride 105 (98-107) mmol/L Carbon Dioxide 27 (21-32) mmol/L BUN 15 (6-23) mg/dl Creatinine 1.00 (0.6-1.4) mg/dl Glucose 111 H (70-99(Fasting)) mg/dl Calcium 8.8 (8.6-10.3) mg/dl Intake and Output 06/14/25 06/15/25 06/15/25 22:59 06:59 14:59 Intake Total 250.300 / 952.833 361.167 / 361.167 Balance 250.300 / 952.833 361.167 / 361.167 Intake: IV 250.300 / 402.833 361.167 / 361.167 Heparin 11414 Unit/500 ml D5w 250.300 / 402.833 361.167 / 361.167 25,000 units In 500 ml @ 1,100 UNITS/HR 22 mls/hr IV .[id number] [facility] Rx#:[id number] Other: Weight 99.3 kg Patient Weight 06/16/25 06:59 Weight 99.3 kg PG Care Time/CCT Total # of Minutes Spent Total Time Spent with Patient: Total time spent is greater than 50% in coordination of care (as documented) at patient's floor/unit and/or counseling patient: Coding Level of Care Code 64086 SUB INP/OBS CARE 3/50MIN Diagnoses Atrial flutter, paroxysmal I48.92 Paroxysmal atrial fibrillation I48.0 H/O aortic valve replacement Z95.2 Pacemaker Z95.0
[2025-06-15 11:47] VITALS: BP 111/72; PULSE 60; TEMP 97.9; O2SAT 95
--- NOTE | 2025-06-15 12:57 | Discharge Summary ---
Date of Service June 15, 2025 Admission HPI Per Admitting Provider He is a 64-year-old male with significant past medical history of cardiac procedures for A-fib including maze procedure and ablation x 2 1 in 2008 and another on his 2013, open heart surgery with Aortic valve replacement and also status post pacemaker with history of paroxysmal atrial fibrillation. He also has prediabetes and benign prostatic hypertrophy and with remote history of testicular cancer status post right testicle removed in 2000. He has also history of thoracic aortic surgery. He has had anticoagulation with Coumadin in the past but presently has not been taking any anticoagulation. He was told by his doctor's office that he has developed atrial fibrillation with rapid ventricular response. He felt palpitation yesterday and he still went to continue with his gym. He has been weak and did have some chest pressure but no pain or any shortness of breath while at gym and wanted to check out his heart further. Admission Exam Per Admitting Provider Physical Exam: Lying in bed without any acute distress Constitutional: well developed and well nourished; not ill appearing Eyes: PERRL, conjunctivae normal, anicteric sclerae ENMT: external ear and nose normal, oropharynx normal Neck: trachea midline, no thyromegaly Respiratory: no respiratory distress Auscultation: lungs clear to auscultation bilaterally Cardiovascular: Rate/Rhythm: + irregularly irregular; not tachycardic Heart Sounds: normal S1, normal S2 and + murmur Extremities: no edema Gastrointestinal (Abdomen): Inspection/Auscultation: normal bowel sounds; abdomen not distended Percussion/Palpation: abdomen soft; abdomen nontender Musculoskeletal: No acute arthritis involving any of the joint Neurologic: normal touch/pain/proprioception and moves all extremities; no focal motor deficits Lymphatic: no cervical or axillary lymphadenopathy Principal Diagnosis A-fib with RVR Discharge Exam Constitutional: WD/WN, vitals as above, NAD, sitting up in bed, pleasant, conversing easily Respiratory: normal respiratory effort, lungs clear to auscultation, no wheeze, rales, rhonchi. Normal insp/exp effort, no accessory muscle use Cardiovascular- systolic murmur present. Irregular Chest: normal inspection of chest Abdomen: normal bowel sounds, soft, nontender, no hepatosplenomegaly Musculoskeletal: no cyanosis or clubbing, extremities motor strength 5/5 Skin: no rashes, warm and dry normal turgor Neurologic: PERRL, EOMI, accommodation nl, no face palsy, no dysarthria CN's II- XI intact bilaterally and moves all extremities Psychiatric: A+Ox3, euthymic affect Discharge Data Allergies Allergy/AdvReac Type Severity Reaction Status Date / Time No Known Allergies Allergy Unverified 06/13/25 15:49 Consultations 06/13/25 15:36 ED Decision to Admit Stat 06/13/25 16:18 Consult Cardiology Routine Procedures Performed Operation Date: 06/15/25 07:15 Actual Procedures p Echo Transesophageal - Deyvi Kaba, DO s Echo Doppler Complete - Deyvi Kaba, DO s Echo Color Flow - Deyvi Kaba, DO s Cardioversion - Deyvi Kaba, Ordered Studies 06/13/25 14:15 CT angio chest PE protocol Stat Hospital Course (1) Atrial fibrillation with RVR: (2) BPH (benign prostatic hyperplasia): (3) Prediabetes: (4) History of testicular cancer: (5) H/O aortic valve replacement: (6) H/O thoracic aortic aneurysm repair: Plan Patient with a history of PAF and aortic valve replacement, pacemaker placement presented with A-fib according to the recent device interrogation Ventricular rate well-controlled in 70s to 80s Echocardiogram shows EF of 55 to 60%; gradient normal for prosthetic aortic valve Patient was admitted to telemetry floor; cardiology was consulted for comanagement. Patient was started on anticoagulation, beta-felice. Patient underwent cardioversion on 06/15; was initially successful but patient reverted back to A- fib. Patient was discharged home on metoprolol 50 mg twice a day and Eliquis 5 mg twice a day. Patient to have outpatient electrophysiology referral; will also follow-up with his PCP. Please note the above document was generated using voice recognition software. It may contain grammatical, syntax or spelling errors. Any formal questions or concerns about the content, text or information contained within the body of this dictation should be directly addressed to the provider for clarification Total Time Total Time Spent Total Time Spent (In Minutes): 45 Total Time Includes: Examination of the Patient, Discharge Planning, Medication Reconciliation, Communication With Other Providers and Other Discharge Plan Discharge Items Patient Disposition: Home - Self-Care Reason For Visit: AFRVR Discharge Diagnosis: A.fib. with RVR Condition on Discharge: Fair Activity: Resume your previous activity Non-emergency contact: Primary Care Provider Call non-emergency contact if: you have any medication questions and your symptoms worsen Follow-up/Referrals: Jarrod Fallon DO [Primary Care Provider] - (Date & Time 06/21/2025 11:00 AM Provider: Jarrod Fallon DO [facility] ) Diet: Regular Addtl Attending Provider Instructions: You were admitted to the hospital due to atrial fibrillation with elevated heart rate. You are prescribed metoprolol 50 mg twice a day as well as Eliquis 5 mg twice a day. Appointment will be set up with your primary care doctor and cardiology for follow-up. Pending Studies at Discharge: No Stand-Alone Forms: My [facility] [employer], Smoking Cessation Medications and DC Order Prescriptions: New Eliquis 5 mg tablet 5 mg PO BID Qty: 60 0RF metoprolol succinate [Toprol XL] 50 mg tablet extended release 24 hr 50 mg PO BID Qty: 60 0RF Continued hydroxychloroquine 200 mg tablet 200 mg PO QAM finasteride 5 mg tablet 5 mg PO QAM Otc Medications 0 mg PO UD Patient Comments: 06/13-Per pt he takes several but didn't mention them to me as he said "I wont worry about that". Discharge Orders: Discharge Order (Routine); Ordered 06/15/25 Ordered By: Rehan Parr Admission Data Admit Date/Time: 06/13/25 16:48 Attending Provider: Rehan Parr Admit Provider: Brie Reyes Primary Care Provider: Jarrod Fallon Other Providers: Brie Reyes; Marjan Edmondson; Pratik Shipley; Manfred Farfan; Deyvi Kaba; Jeff Newby; Martin Man; Monika Palencia; Cee Rodriguez; Sheree Srivastava; Sherry Hi; Marjan Henriquez; Derrell Hodgson; Nick Toscano; Sulma Dietz; Solange Yee; Catherine Diggs; Heather Cabrera; Mehdi Pastor; Rhonda Hoang; Kitty Quispe; Guillermo Bonner; Magdy Zamora N
[2025-06-15] MEDS: APIXABAN 5 MG TABLET PO SCH (13:13)
[2025-06-17 01:03] LABS: Plt Ab, Heparin Induced Positive (Negative)
--- NOTE | 2025-06-17 15:59 | Electrocardiogram Report ---
Test Reason : Blood Pressure : */* mmHG Vent. Rate : 90 BPM Atrial Rate : 90 BPM P-R Int : 204 ms QRS Dur : 160 ms QT Int : 440 ms P-R-T Axes : * -70 78 degrees QTcB Int : 538 ms AV dual-paced rhythm Abnormal ECG When compared with ECG of 14-Jun-2025 06:41, (unconfirmed) Vent. rate has increased by 21 bpm Confirmed by Simone Chou ([id number]) on 06/17/2025 3:59:18 PM Referred By: REFERRED SELF Confirmed By: Simone Chou
--- NOTE | 2025-06-17 16:08 | Electrocardiogram Report ---
Test Reason : Blood Pressure : */* mmHG Vent. Rate : 69 BPM Atrial Rate : 70 BPM P-R Int : * ms QRS Dur : 170 ms QT Int : 486 ms P-R-T Axes : * -73 88 degrees QTcB Int : 520 ms Ventricular-paced rhythm with ocassional fusion Atrial rhythm appears to be atrial flutter Abnormal ECG When compared with ECG of 13-Jun-2025 18:20, (unconfirmed) No significant change was found Confirmed by Simone Chou ([id number]) on 06/17/2025 4:08:43 PM Referred By: REFERRED SELF Confirmed By: Simone Chou
== END 2025-06-15 14:46 | disposition home or self-care (01) | DRG 310 ==
LOC: ED 13:43 → SUATTDRO 16:48 → EDINP 16:48 → 2S 19:04 → 2E 06-14 11:02
DX: Z95.0 Presence of cardiac pacemaker; Z85.47 Personal history of malignant neoplasm of testis; I48.0 Paroxysmal atrial fibrillation; R73.03 Prediabetes; I48.19 Other persistent atrial fibrillation; N40.0 Benign prostatic hyperplasia without lower urinary tract symptoms; Z95.2 Presence of prosthetic heart valve